=== PATIENT | male | born 1995 | race Caucasian/White ===

== ENCOUNTER 2023-02-25 09:24 | Emergency (ER) | payer SELFPAY ==
[2023-02-25 09:44] VITALS: TEMP 97.5
[2023-02-25 10:29] LABS: Absolute Neutrophil Ct (ANC) 5.37 x10^3/uL (1.4-6.9); BASOPHIL % 0.4 % (0.0-0.4); Basophil (Absolute #) 0.03 x10^3/uL (0-0.4); Eosinophil % 0.9 % (0.00-5.0); Eosinophil (Absolute #) 0.07 x10^3/uL (0-0.5); Hematocrit 37.9 % (42-50); Hemoglobin 12.6 g/dL (12.5-18.0); IMMATURE GRAN # 0.03 x10^3u/L (0.00-0.03); IMMATURE GRAN % 0.4 % (0.00-0.4); Lymphocyte (Absolute #) 1.77 x10^3/uL (1.0-4.6); Lymphocytes % 21.5 % (24.0-44.0); Mean Corpuscular Hemoglobin 29.9 pg (26-32); Mean Corpuscular Hgb Concent. 33.2 g/dL (32-36); Mean Platelet Volume 9.4 fL (7.5-11.0); Monocyte (Absolute #) 0.95 x10^3/uL (0.0-1.3); Monocytes % 11.6 % (0.0-12.0); Neutrophil % 65.2 % (36.0-66.0); Platelet Count 264 x10^3/uL (150-450); Red Blood Count 4.21 x10^6/uL (4.1-5.6); Red Cell Distribution Width 12.6 % (11.5-14.0); White Blood Count 8.2 x10^3/uL (4.0-10.5)
[2023-02-25 10:37] LABS: ALBUMIN 4.4 g/dL (3.5-5.0); ALKALINE PHOSPHATASE 54 U/L (38-126); ANION GAP 16.5 MEQ/L (5-15); BLOOD UREA NITROGEN 18 mg/dL (9-20); CHLORIDE 102 mmol/L (98-107); Calcium 8.7 mg/dL (8.4-10.2); Carbon Dioxide 22 mmol/L (22-30); Creatinine 1 0.79 mg/dL (0.66-1.25); EST GLOMERULAR FILTRATION RATE > 60.0 ML/MIN; Glucose 101 mg/dL (74-106); SGOT/AST 62 U/L (17-59); SGPT/ALT 99 U/L (0-50); SODIUM 136 mmol/L (137-145); Total Protein 7.5 g/dL (6.3-8.2)
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
[2023-02-25] MEDS ORDERED: HYDROCODONE-ACETAMIN 10-325 MG PO ONE (12:11)
[2023-02-25] MEDS ORDERED: MOTRIN 600 MG PO ONE (12:11)
[2023-02-25] MEDS ORDERED: MOTRIN 600 MG ONE (12:13)
[2023-02-25] MEDS ORDERED: HYDROCODONE-ACETAMIN 10-325 MG ONE (12:13)
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
[2023-02-25 13:08] LABS: Appearance Clear (Clear); Bilirubin Negative (Negative); Blood Negative (Negative); Glucose, Urine Negative (Negative); Ketones 80 (Negative); Leukocyte Esterase Negative (Negative); Nitrite Negative (Negative); Ph 5.5 (4.6-8.0); Protein,Urine Dip 30 (Negative); Specific Gravity >=1.030 (1.005-1.030)
[2023-02-25 13:17] VITALS: BP 119/67; PULSE 86; RESP 22; O2SAT 95
[2023-02-25 13:36] LABS: ADD URINE CULTURE? NO (NO); Bacteria None Seen /HPF (None Seen); Epithelial Cells None Seen /HPF (None Seen); RBC 0-2 /HPF (0-5); WBC 0-2 /HPF (0-5)
== END 2023-02-25 13:27 | disposition home or self-care (01) ==
LOC: ED 09:24
DX: S00.511A Abrasion of lip, initial encounter (principal); S20.311A Abrasion of right front wall of thorax, initial encounter; V28.49XA Other motorcycle driver injured in noncollision transport accident in traffic accident, initial encounter; M25.511 Pain in right shoulder; M54.9 Dorsalgia, unspecified; R10.9 Unspecified abdominal pain; Z28.310 Unvaccinated for COVID-19
CPT/HCPCS: 36000; 36415; 70450; 71260; 72125; 74177; 76376; 80053; 81001; 84484; 85025; 93005; 99285; L0172; A9270-GY